=== PATIENT | female | born 1970 | race Caucasian/White ===

== ENCOUNTER 2018-07-07 10:10 | Emergency (ER) | payer OTHER ==
[~2018-07-07] VITALS: Ht 162.6 cm; Wt 80.7 kg
[~2018-07-07 10:10] MED LIST: ACCUNEB SO1.25 MG/1; CYMBALTA20 MG; IBUPROFEN 800800 M1 PO; PHENTERMINE HCL15 MG PO; PROZAC 20 MG20 MG
[2018-07-07] MEDS ORDERED: VENTOLIN HFA 1818 GM INH (11:05)
[2018-07-07] MEDS ORDERED: TRAMADOL 50 MG50 MG PO (11:05)
[2018-07-07] MEDS ORDERED: PREDNISONE 20 M20 M1 PO (11:05)
[2018-07-07] MEDS ORDERED: TESSALON PERLE100 MG PO (11:05)
[2018-07-07] MEDS ORDERED: DOXYCYCLINE 10100 MG PO (11:05)
[2018-07-07 11:20] VITALS: BP 137/94
== END 2018-07-07 11:21 | disposition home or self-care (01) ==
LOC: M.ERS 10:10
DX: J40 Bronchitis, not specified as acute or chronic (principal); F17.210 Nicotine dependence, cigarettes, uncomplicated; Z98.890 Other specified postprocedural states; Z87.01 Personal history of pneumonia (recurrent); Z88.6 Allergy status to analgesic agent; Z88.5 Allergy status to narcotic agent; Z88.1 Allergy status to other antibiotic agents

== ENCOUNTER 2019-02-07 07:48 | Emergency (ER) | payer OTHER ==
[~2019-02-07] VITALS: Ht 165.1 cm; Wt 82.1 kg
[~2019-02-07 07:48] MED LIST changes: +DOXYCYCLINE 10100 MG PO; +PREDNISONE 20 M20 M1 PO; +TESSALON PERLE100 MG PO; +TRAMADOL 50 MG50 MG PO; +VENTOLIN HFA 1818 GM INH
[2019-02-07] MEDS ORDERED: VENTOLIN HFA 1818 GM INH (09:12)
[2019-02-07] MEDS ORDERED: PREDNISONE 20 M20 M1 PO (09:12)
[2019-02-07] MEDS ORDERED: DOXYCYCLINE 10100 M1 PO (09:12)
[2019-02-07] MEDS ORDERED: TRAMADOL 50 MG50 MG PO (09:17)
[2019-02-07 09:28] VITALS: BP 187/78
== END 2019-02-07 09:29 | disposition home or self-care (01) ==
LOC: M.ERS 07:48
DX: J40 Bronchitis, not specified as acute or chronic (principal); F17.210 Nicotine dependence, cigarettes, uncomplicated; Z88.6 Allergy status to analgesic agent; Z88.1 Allergy status to other antibiotic agents; Z88.8 Allergy status to other drugs, medicaments and biological substances; Z98.890 Other specified postprocedural states; Z87.01 Personal history of pneumonia (recurrent)

== ENCOUNTER → 2019-06-29 | Outpatient (CLI) | payer OTHER ==
[~2019-06-29] MED LIST changes: +DOXYCYCLINE 10100 M1 PO
== END ==
LOC: M.RAD 06-22 09:30
DX: Z12.31 Encounter for screening mammogram for malignant neoplasm of breast (principal)

== ENCOUNTER 2020-09-26 07:53 | Emergency (ER) | payer OTHER ==
[~2020-09-26] VITALS: Ht 165.1 cm; Wt 88.9 kg
[2020-09-26 08:30] LABS: ABSOLUTE EOSINOPHILS 0.2 thou/uL (0.0-0.7); ABSOLUTE LYMPHOCYTES 2.6 thou/uL (0.8-5.3); ABSOLUTE MONOCYTES 0.7 thou/uL (0.0-1.2); ABSOLUTE NEUTROPHILS 7.6 thou/uL (1.6-8.1); BASOPHILS 0.4 %; HEMATOCRIT 33.9 % (37.0-47.0); HEMOGLOBIN 11.8 gm/dL (12.0-15.0); LYMPHOCYTES 23.5 %; MCH 41.9 pg (26.0-34.0); MCHC 34.8 g/dL (28.0-37.0); MCV 120.5 fL (80.0-100.0); MONOCYTES 6.1 %; MPV 7.9 fl. (7.2-11.1); NUCLEATED RBCS 0 /100WBC; PLATELET COUNT* 239 thou/uL (150-400); RBC 2.82 mil/uL (4.20-5.00); RDW-CV 19.8 % (10.5-14.5); WBC 11.2 thou/uL (4.0-11.0)
[2020-09-26 08:32] LABS: URINE BLOOD NEGATIVE (Negative); URINE CLARITY CLEAR; URINE COLOR DARK YELLOW; URINE GLUCOSE-RANDOM NEGATIVE (Negative); URINE KETONES TRACE (Negative); URINE LEUKOCYTES-REFLEX 1+ (Negative); URINE PROTEIN TRACE (Negative); URINE SPECIFIC GRAVITY 1.025 (1.005-1.030)
[2020-09-26 08:38] LABS: ICTOTEST (BILI CONFIRMATORY) Positive (Negative); URINE BILIRUBIN 2+ (Negative); URINE NITRITE-REFLEX POSITIVE (Negative)
[2020-09-26 08:40] LABS: SQUAMOUS 4-10 Moderate /LPF (0-3); URINE WBC-REFLEX 6-15 Few /HPF (0-5)
[2020-09-26 08:41] LABS: CASTS None Seen /LPF (None Seen); CRYSTALS None Seen /LPF (None Seen); MUCUS 4-6 Moderate strn/LPF (None Seen); URINE RBC 0-2 Rare /HPF (0-2)
[2020-09-26 08:42] LABS: CALCIUM 8.1 mg/dL (8.5-10.1); CREATININE 0.5 mg/dL (0.6-1.3); POTASSIUM 3.2 mmol/L (3.5-5.1)
[2020-09-26 08:51] LABS: ALBUMIN 3.2 g/dL (3.4-5.0); TOTAL PROTEIN 7.4 g/dL (6.4-8.2)
[2020-09-26] MEDS ORDERED: BENTYL 10 MG CA10 M1 PO (10:11)
[2020-09-26] MEDS ORDERED: AUGMENTIN 875-1 EACH PO (10:11)
[2020-09-26] MEDS ORDERED: ZOFRAN ODT4 MG DISSOLVE (10:11)
[2020-09-26 10:37] VITALS: BP 138/91
--- NOTE | 2020-09-26 14:15 | EKG ---
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1970 Requested By: Mega Espinoza Order Number: [id number] MD: Paulie Nascimento Measurements Intervals [place] Rate: 85 P: 65 DE: 176 QRS: 28 QRSD: 90 T: 57 QT: 406 QTc: 483 Interpretive Statements Sinus rhythm Low voltage, precordial leads No previous ECG available for comparison Electronically Signed On 09-26-2020 14:15:50 CDT by Paulie Nascimento [email or web address] <ELECTRONICALLY SIGNED> By: Paulie Nascimento MD, [facility] 09/26/20 1415 9 9 Paulie Nascimento MD, [facility] /EPI
== END 2020-09-26 10:38 | disposition home or self-care (01) ==
LOC: M.ERS 07:53
PROVIDERS: Emergency Medicine Emergency Medical Services
DX: N39.0 Urinary tract infection, site not specified (principal); R11.2 Nausea with vomiting, unspecified; F17.210 Nicotine dependence, cigarettes, uncomplicated; Z98.890 Other specified postprocedural states; Z88.6 Allergy status to analgesic agent; Z88.8 Allergy status to other drugs, medicaments and biological substances

== ENCOUNTER 2020-11-04 06:47 | Inpatient (IN) | payer OTHER ==
[~2020-11-04] VITALS: Ht 165.1 cm; Wt 93.1 kg
[~2020-11-04 06:47] MED LIST changes: +AUGMENTIN 875-1 EACH PO; +BENTYL 10 MG CA10 M1 PO; +ZOFRAN ODT4 MG DISSOLVE
[2020-11-04 07:00] VITALS: BP 140/84
[2020-11-04 07:50] LABS: ABSOLUTE LYMPHOCYTES 1.2 thou/uL (0.8-5.3); ABSOLUTE MONOCYTES 0.5 thou/uL (0.0-1.2); ABSOLUTE NEUTROPHILS 3.1 thou/uL (1.6-8.1); EOSINOPHILS 0.9 %; HEMATOCRIT 30.7 % (37.0-47.0); HEMOGLOBIN 11.3 gm/dL (12.0-15.0); LYMPHOCYTES 24.5 %; MCH 44.3 pg (26.0-34.0); MCHC 36.7 g/dL (28.0-37.0); MCV 120.6 fL (80.0-100.0); MONOCYTES 10.6 %; MPV 7.3 fl. (7.2-11.1); NUCLEATED RBCS 0 /100WBC; PLATELET COUNT* 127 thou/uL (150-400); RBC 2.55 mil/uL (4.20-5.00); RDW-CV 18.4 % (10.5-14.5)
[2020-11-04 08:22] LABS: CALCIUM 7.6 mg/dL (8.5-10.1); CREATININE 0.6 mg/dL (0.6-1.3)
[2020-11-04 08:27] LABS: ALBUMIN 2.7 g/dL (3.4-5.0); TOTAL BILIRUBIN 2.2 mg/dL (<0.1-1.0); TOTAL PROTEIN 7.1 g/dL (6.4-8.2)
[2020-11-04 09:12] LABS: PLATELET ESTIMATE ADEQUATE; TARGET CELLS 1+
[2020-11-04 10:30] LABS: URINE BILIRUBIN NEGATIVE (Negative); URINE BLOOD NEGATIVE (Negative); URINE CLARITY CLEAR; URINE COLOR YELLOW; URINE GLUCOSE-RANDOM NEGATIVE (Negative); URINE KETONES NEGATIVE (Negative); URINE LEUKOCYTES-REFLEX NEGATIVE (Negative); URINE NITRITE-REFLEX NEGATIVE (Negative); URINE PROTEIN NEGATIVE (Negative)
[2020-11-04 14:51] VITALS: BP 120/89
[2020-11-04 18:38] VITALS: BP 105/73
[2020-11-04 20:18] VITALS: BP 105/73
[2020-11-04] MEDS ORDERED: ASA81BEC PO (20:32)
[2020-11-04] MEDS ORDERED: IBUPROFEN 600600 M1 PO (20:37)
[2020-11-04 20:40] VITALS: BP 122/78
[2020-11-05 00:44] VITALS: BP 115/73
--- NOTE | 2020-11-05 01:23 | NUR ---
PT ADMIT TO COVID UNIT ROOM 115. ALERT ORIENTED X 4. UP TO BR WITH ONE PERSON ASSIST. PT IS UNSTEADY WHEN AMBULATORY. FALL PRECAUTIONS IN PLACE. PT GETTING SCHEDULED ATIVAN. PT DRINKS 5-6 SHOTS LIQUIOR PER DAY. PT SNORES WHEN ASLEEP. INITALLY ON RA. O2 2 LITERS NC ADDED WHEN PT DESAT IN THE UPPER 70S. PT STATED SHE NORMALLY WAKES UP Q 15-30 MIN WHEN SLEEPING. TELEMETRY SHOWS SR.
[2020-11-05 04:28] VITALS: BP 113/68
[2020-11-05 07:44] LABS: HEMATOCRIT 28.4 % (37.0-47.0); HEMOGLOBIN 10.2 gm/dL (12.0-15.0); MCH 43.6 pg (26.0-34.0); MCV 121.2 fL (80.0-100.0); MPV 7.8 fl. (7.2-11.1); RBC 2.34 mil/uL (4.20-5.00); RDW-CV 18.3 % (10.5-14.5); WBC 4.5 thou/uL (4.0-11.0)
[2020-11-05 07:52] LABS: CREATININE 0.6 mg/dL (0.6-1.3); POTASSIUM 3.1 mmol/L (3.5-5.1)
[2020-11-05 08:00] VITALS: BP 111/76
--- NOTE | 2020-11-05 09:58 | EKG ---
[place] [address] ELECTROCARDIOGRAM REPORT Name: SUNDAY ROSS Room: [address] ADM IN ..#: [id number] Admission: 11/04/20 Attend Phys: Eliot Lobato Discharge: Date of : 66 Date of Service: 11/04/20 0735 Report #: [id number] THIS REPORT FOR: //name// [facility] ED Test Date: 2020-11-04 Test Time: 07:35:10 Pat Name: SUNDAY ROSS Department: Room: [facility] Gender: F Recovery Coach: CANDIDO : 1970 Requested By: Kanu Cates Order Number: [id number] MD: Neri Foster Measurements Intervals [place] Rate: 87 P: 57 IN: 170 QRS: 27 QRSD: 117 T: 50 QT: 423 QTc: 509 Interpretive Statements Sinus rhythm Ventricular premature complex poor r wave progression Low voltage, extremity and precordial leads Compared to ECG 09/26/2020 08:10:17 Ventricular premature complex(es) now present Electronically Signed On 11-05-2020 9:58:01 CDT by Neri Foster [email or web address] <ELECTRONICALLY SIGNED> By: Neri Foster MD, FAC 11/05/20 0958 4 Neri Foster MD, FAC /EPI
[2020-11-05 12:58] LABS: INR 1.2; PROTIME 12.4 Seconds (9.20-11.50)
[2020-11-05 13:03] VITALS: BP 91/64
[2020-11-05 18:44] LABS: BE 0.8 mmol/L (-2 to +3); PCO2 36.2 mmHg (35.0-45.0); PO2 112.5 mmHg (75.0-100.0); pH 7.453 (7.340-7.450)
--- NOTE | 2020-11-05 19:03 | NUR ---
RECEIVED REPORT AROUND 0715. ASSUMED CARE. VS AND ASSESSMENT CHARTED. IV INTACT. NEW IV STARTED IN LEFT AC FOR CT. MEDS GIVEN PER JUN. HOURLY ROUNDING PERFORMED. ISOLATION INTACT. HEART MONITOR ATTACHED AT SR. CALL LIGHT WITH IN REACH.
[2020-11-05 20:00] VITALS: BP 119/75
[2020-11-06 00:17] VITALS: BP 110/70
--- NOTE | 2020-11-06 02:57 | NUR ---
PT DROWSEY ORIENTED X 4. DTR GIANFRANCO CALLED AND WANTED INFO RE MOTHER. PT REQUESTED NOT GIVE OUT INFO. DAUGHTERS PHONE NUMBER TAKEN DOWN ON A POST IT NOTE AND GIVEN TO PT. PT REMINDED TO CALL DTR 4 TIMES. PT REFUSED TO CALL DTR. O2 AT 2 LITERS NC. PT DESATURATES TO LOW 80S WHEN SHE TAKES O2 OFF AND FALLS ASLEEP. CURTAIN MENDER TRACING SR. HYDROCODONE GIVEN FOR BACK PAIN. CIWA 0. LORAZEPAM HELD FOR NOW. WELL CONTINUE TO MONITOR AND ASSESS.
[2020-11-06 04:25] VITALS: BP 95/62
[2020-11-06 05:44] LABS: ALBUMIN 2.3 g/dL (3.4-5.0); DIRECT BILIRUBIN 1.4 mg/dL (<0.1-0.3); TOTAL BILIRUBIN 1.8 mg/dL (<0.1-1.0); TOTAL PROTEIN 6.3 g/dL (6.4-8.2)
[2020-11-06 14:27] VITALS: BP 122/80
[2020-11-06 14:39] LABS: HEMATOCRIT 32.3 % (37.0-47.0); HEMOGLOBIN 11.4 gm/dL (12.0-15.0); MCH 42.2 pg (26.0-34.0); MCHC 35.2 g/dL (28.0-37.0); MCV 119.8 fL (80.0-100.0); MPV 8.5 fl. (7.2-11.1); RBC 2.7 mil/uL (4.20-5.00); RDW-CV 18.1 % (10.5-14.5); WBC 4.3 thou/uL (4.0-11.0)
[2020-11-06 14:44] LABS: CREATININE 0.7 mg/dL (0.6-1.3); POTASSIUM 3.3 mmol/L (3.5-5.1)
--- NOTE | 2020-11-06 15:17 | NUR ---
CM ASSESSMENT: PT IS COVID POSITIVE AND CURRENTLY UNDER ENHANCED PRECAUTIONS. PT A&O, INDEPENDENT WITH ADL'S, ACTIVE AND WORKS OUTSIDE THE HOME. PT RESIDES AT HOME ALONE. PT USES O DME, BUT INFORMS THAT SHE OWNS A HOME NEBULIZER AND DOESNT USE IT OFTEN. PT HAS 0 HX OF HH OR SNF. PT CURRENTLY ON 2L O2, AND DID NOT HAVE HOME OXYGEN PRIOR TO ADMIT. CM WILL REMAIN AVAILABLE TO ASSIST AND FOLLOW NEEDED.
[2020-11-06 15:26] LABS: MAGNESIUM 1.5 mg/dL (1.8-2.4); PHOSPHORUS* 3.3 mg/dL (2.5-4.9)
[2020-11-06 18:29] VITALS: BP 101/67
--- NOTE | 2020-11-06 19:14 | NUR ---
RECEIVED REPORT AROUND 0715. ASSUMED CARE. VS AND ASSESSMENT CHARTED. IV'S INTACT. HEART MONITOR ATTACHED AT SR/ST. MEDS GIVEN PER JUN. HOURLY ROUNDING PERFORMED. ISOLATION INTACT. NO PAIN THIS SHIFT. CALL LIGHT WITH IN REACH.
[2020-11-06 20:00] VITALS: BP 107/71
[2020-11-07] VITALS: BP 108/78
[2020-11-07 04:58] VITALS: BP 113/80
[2020-11-07 07:11] LABS: MAGNESIUM 1.6 mg/dL (1.8-2.4); POTASSIUM 3.8 mmol/L (3.5-5.1)
[2020-11-07 08:00] VITALS: BP 110/61
[2020-11-07 17:06] VITALS: BP 121/80
--- NOTE | 2020-11-07 18:46 | NUR ---
RECEIVED REPORT AROUND 0715. ASSUMED CARE. VS AND ASSESSMENT CHARTED. IV INTACT LEFT AC. PT PULLED OUT RIGHT HAND IV. HEART MONITOR ATTACHED AT SR. PT UP STAND BY ASSIST. MEDS GIVEN PER JUN. HOURLY ROUNDING PERFORMED. ISOLATION INTACT. 24 HOUR URINE BUCKET AT BEDSIDE. COLLECTION STARTED AT 1640 THIS SHIFT. NO PAIN THIS SHIFT. CALL LIGHT WITH IN REACH. WILL CONTINUE TO MONITOR.
[2020-11-07 18:50] VITALS: BP 125/80
[2020-11-07 20:00] VITALS: BP 116/64
[2020-11-08] VITALS: BP 121/60
--- NOTE | 2020-11-08 04:14 | NUR ---
ASSUMED PT CARE AT APPROX 1930. PT IS AWAKE AND ORIENTED X4. PT IS NOT IN DISTRESS, NO DESATURATIONS NOTED ON 2L OF O2/NC. PT IS NOT IN DISTRESS NO DESATURATIONS NOTED ON 2L OF O2/NC. NO ACUTE CHANGES THIS SHIFT. CALL LIGHT WITHIN REACH. HOURLY ROUNDING DONE FOR PT SAFETY.
[2020-11-08 05:35] VITALS: BP 116/74
[2020-11-08] MEDS ORDERED: AUGMENTIN 875-1 EACH PO (08:59)
[2020-11-08] MEDS ORDERED: VENTOLIN HFA 1818 GM INH (08:59)
[2020-11-08] MEDS ORDERED: PRENATAL PO (08:59)
[2020-11-08] MEDS ORDERED: DEXAMETHASONE6 MG PO (08:59)
[2020-11-08 11:45] VITALS: BP 109/67
[2020-11-08 11:48] VITALS: BP 138/94; BP 151/96
--- NOTE | 2020-11-08 14:44 | NUR ---
PHYSICIAN INFORMS OF PLAN FOR THE PT TO D/C HOME TODAY WITH SELF-CARE. R.T. COMPLETED REST AND EXERCISE AND INFORMS THAT THE PT DOES NOT NEED HOME O2. NO OTHER CM D/C PLANNIG NEEDS ANTICIPATED. CM WILL REMAIN AVAILABLE TO ASSIST AND FOLLOW NEEDED.
[2020-11-08 15:07] VITALS: BP 151/96
--- NOTE | 2020-11-08 17:52 | NUR ---
RECEIVED REPORT AROUND 0715. ASSUMED CARE. VS AND ASSESSMENT CHARTED. IV INTACT THIS AM. HEART MONITOR ATTACHED THIS AM. SR. REST AND EXERCISE DONE THIS SHIFT. NO O2 NEEDED. ISOLATION INTACT. MEDS GIVEN PER JUN. HOURLY ROUNDING PERFORMED. 24 HR URINE COLLECTED. DISCHARGE ORDERS RECEIVED. IV TAKEN OUT. HEART MONITOR OFF. PACKET GIVEN TO PT. COMMUNICATED UNDERSTANDING. PT LEFT UNIT VIA WHEEL CHAIR WITH ALL BELONGINGS AND NURSING STAFF AT 1740.
== END 2020-11-08 17:40 | disposition home or self-care (01) | DRG 177 ==
LOC: M.ERS 06:47 → M.ORTHSURG 10:48 → M.TBA-ER 10:48 → M.ORTHSURG 20:16
PROVIDERS: Family Medicine; Internal Medicine; Nurse Practitioner Adult Health; ADMIT Internal Medicine; ATTEND Internal Medicine
DX: U07.1 COVID-19 (principal); J12.82 Pneumonia due to coronavirus disease 2019; E87.1 Hypo-osmolality and hyponatremia; K92.0 Hematemesis; K70.31 Alcoholic cirrhosis of liver with ascites; K70.40 Alcoholic hepatic failure without coma; D64.9 Anemia, unspecified; K52.9 Noninfective gastroenteritis and colitis, unspecified; E87.6 Hypokalemia; R74.01 Elevation of levels of liver transaminase levels; E83.51 Hypocalcemia; E80.7 Disorder of bilirubin metabolism, unspecified; F10.20 Alcohol dependence, uncomplicated; R20.2 Paresthesia of skin; D69.6 Thrombocytopenia, unspecified; R06.03 Acute respiratory distress; R63.5 Abnormal weight gain; K59.00 Constipation, unspecified; Z88.6 Allergy status to analgesic agent; Z88.1 Allergy status to other antibiotic agents; Z88.8 Allergy status to other drugs, medicaments and biological substances; Z68.34 Body mass index [BMI] 34.0-34.9, adult

== ENCOUNTER 2020-11-25 23:06 | Inpatient (IN) | payer OTHER ==
[~2020-11-25] VITALS: Ht 165.1 cm; Wt 84.4 kg
[~2020-11-25 23:06] MED LIST changes: +ASA81BEC PO; +DEXAMETHASONE6 MG PO; +IBUPROFEN 600600 M1 PO; +PRENATAL PO
[2020-11-25 23:20] VITALS: BP 149/90
[2020-11-25 23:56] LABS: ABSOLUTE BASOPHILS 0.1 thou/uL (0.0-0.2); ABSOLUTE EOSINOPHILS 0.4 thou/uL (0.0-0.7); ABSOLUTE LYMPHOCYTES 3.7 thou/uL (0.8-5.3); ABSOLUTE NEUTROPHILS 8.4 thou/uL (1.6-8.1); BASOPHILS 0.4 %; EOSINOPHILS 2.8 %; HEMATOCRIT 30.4 % (37.0-47.0); HEMOGLOBIN 10.4 gm/dL (12.0-15.0); LYMPHOCYTES 27.1 %; MCH 39.1 pg (26.0-34.0); MCHC 34.2 g/dL (28.0-37.0); MCV 114.3 fL (80.0-100.0); MONOCYTES 7.2 %; MPV 8.6 fl. (7.2-11.1); NUCLEATED RBCS 0 /100WBC; PLATELET COUNT* 192 thou/uL (150-400); POLYS 62.5 %; RBC 2.66 mil/uL (4.20-5.00); RDW-CV 17.9 % (10.5-14.5); WBC 13.4 thou/uL (4.0-11.0)
[2020-11-26 00:07] LABS: URINE BLOOD NEGATIVE (Negative); URINE CLARITY CLEAR; URINE COLOR DARK YELLOW; URINE GLUCOSE-RANDOM NEGATIVE (Negative); URINE KETONES 1+ (Negative); URINE LEUKOCYTES-REFLEX NEGATIVE (Negative); URINE NITRITE-REFLEX NEGATIVE (Negative); URINE PROTEIN TRACE (Negative); URINE SPECIFIC GRAVITY 1.025 (1.005-1.030); URINE UROBILINOGEN >= 8.0 E.U./dl (0.2-1.0)
[2020-11-26 00:10] LABS: CALCIUM 8.3 mg/dL (8.5-10.1); CREATININE 0.5 mg/dL (0.6-1.3); POTASSIUM 3.1 mmol/L (3.5-5.1)
[2020-11-26 00:12] LABS: APTT 26.2 Seconds (25.0-31.3); INR 1.1; PROTIME 11.9 Seconds (9.20-11.50)
[2020-11-26 00:15] LABS: MAGNESIUM 1.7 mg/dL (1.8-2.4); TOTAL PROTEIN 6.9 g/dL (6.4-8.2)
[2020-11-26 00:15] LABS: URINE BILIRUBIN 2+ (Negative)
[2020-11-26 00:18] LABS: ICTOTEST (BILI CONFIRMATORY) Positive (Negative)
[2020-11-26 00:40] LABS: AMP/METHAMP Negative (Negative); BARBITURATES Negative (Negative); BENZODIAZEPINES Negative (Negative); COCAINE POSITIVE (Negative); METHADONE Negative (Negative); OPIATES Negative (Negative); PCP Negative (Negative); THC POSITIVE (Negative)
[2020-11-26 02:50] LABS: ACETAMINOPHEN < 2 ug/mL (10-30); SALICYLATE < 2.8 mg/dL (2.8-20.0)
--- NOTE | 2020-11-26 04:08 | NUR ---
PT REQUESTS THAT DAUGHTER, JOHN ROSS, BE GIVEN UPDATE ON CARE/RESULTS WHEN SHE CALLS.
[2020-11-26 04:19] LABS: ANISOCYTOSIS 1+; MACROCYTES 2+; PLATELET ESTIMATE ADEQUATE
[2020-11-26 07:26] VITALS: BP 102/59
[2020-11-26 09:35] LABS: ABSOLUTE BASOPHILS 0.1 thou/uL (0.0-0.2); ABSOLUTE EOSINOPHILS 0.3 thou/uL (0.0-0.7); ABSOLUTE LYMPHOCYTES 1.9 thou/uL (0.8-5.3); ABSOLUTE MONOCYTES 0.5 thou/uL (0.0-1.2); ABSOLUTE NEUTROPHILS 5.2 thou/uL (1.6-8.1); BASOPHILS 0.9 %; EOSINOPHILS 3.3 %; HEMATOCRIT 27.6 % (37.0-47.0); HEMOGLOBIN 9.3 gm/dL (12.0-15.0); LYMPHOCYTES 23.3 %; MCH 38.4 pg (26.0-34.0); MCHC 33.5 g/dL (28.0-37.0); MCV 114.6 fL (80.0-100.0); MONOCYTES 6.8 %; MPV 8.5 fl. (7.2-11.1); NUCLEATED RBCS 0 /100WBC; PLATELET COUNT* 152 thou/uL (150-400); POLYS 65.7 %; RBC 2.41 mil/uL (4.20-5.00); RDW-CV 17.6 % (10.5-14.5)
[2020-11-26 09:51] LABS: ANION GAP 10 mmol/L (7-16); BUN 6 mg/dL (7-18); CALCIUM 7.4 mg/dL (8.5-10.1); CHLORIDE 106 mmol/L (98-107); CHOLESTEROL 186 mg/dL (<200); CO2 25 mmol/L (21-32); CREATININE 0.5 mg/dL (0.6-1.3); GLUCOSE 85 mg/dL (70-99); HDL CHOLESTEROL 55 mg/dL (>40); LDL CHOLESTEROL 114 mg/dL (<100); POTASSIUM 3.5 mmol/L (3.5-5.1); SODIUM 141 mmol/L (136-145); TC:HDL 3.4 Ratio (Not establshd); TRIGLYCERIDE 89 mg/dL (<150); VLDL 18 mg/dL (<40)
[2020-11-26 09:57] LABS: SERUM ASSESSMENT Clear
[2020-11-26 10:05] LABS: APTT 26.4 Seconds (25.0-31.3); INR 1.2; PROTIME 12.3 Seconds (9.20-11.50)
--- NOTE | 2020-11-26 10:08 | EKG ---
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1970 Requested By: Claudia Tyler Order Number: [id number] MD: Neri Foster Measurements Intervals [place] Rate: 107 P: 74 ME: 162 QRS: 39 QRSD: 86 T: 64 QT: 352 QTc: 470 Interpretive Statements Sinus tachycardia Low voltage, precordial leads Compared to ECG 11/04/2020 07:35:10 Sinus rhythm no longer present Ventricular premature complex(es) no longer present Poor R-wave progression no longer present Electronically Signed On 11-26-2020 10:08:40 CDT by Neri Foster [email or web address] <ELECTRONICALLY SIGNED> By: Neri Foster MD, [facility] 11/26/20 1008 31 31 Neri Foster MD, [facility] /EPI
[2020-11-26 10:12] LABS: ANISOCYTOSIS 1+; MACROCYTES 1+; PLATELET ESTIMATE ADEQUATE
[2020-11-26 11:30] VITALS: BP 101/69
--- NOTE | 2020-11-26 12:55 | 2DMMODE ---
[place] [address] 2 D/M-MODE ECHOCARDIOGRAM Name: SUNDAY ROSS ANN Room: [place] [address] ADM IN [place].#: [id number] Admission: 11/26/20 Attend Phys: Jaziel Wills, Discharge: Date of : 66 Date of Service: 11/26/20 1255 Report #: [id number] THIS REPORT FOR: cc: PHIL HURLEY MD, BEVERLEY B. MD Blick,Neri Cunningham MD [facility] ~ APPROVED REPORT Study performed: 11/26/2020 10:45:41 EXAM: Comprehensive 2D, Doppler, and color-flow Echocardiogram Patient Location: In-Patient Room #: er Status: routine BSA: 1.92 HR: 92 bpm BP: 102/9 mmHg Rhythm: NSR Other Information Study Quality: Good Indications CVA/TIA Echo Enhancing Agent Indication: Rule out Shunt Agent(s) / Amount(s) Used: Agitated Saline 10 cc 2D Dimensions IVSd: 9.33 (7-11mm) LVOT Diam: 20.72 (18-24mm) LVDd: 50.52 mm PWd: 9.92 (7-11mm) Ascending Ao: 34.83 (22-36mm) LVDs: 31.44 (25-40mm) Aortic Root: 34.27 mm Volumes Left Atrial Volume (Systole) LA ESV Index: 30.80 mL/m2 Aortic Valve AoV Peak Spencer.: 1.63 m/s AO Peak Gr.: 10.57 mmHg LVOT Max P.36 mmHg AO Mean Gr.: 6.01 mmHg LVOT Mean P[place]99 [place] [address] 2 D/M-MODE ECHOCARDIOGRAM Name: SUNDAY ROSS ANN Room: [address] IN ..#: [id number] Admission: 11/26/20 Attend Phys: Jaziel Wills, Discharge: Date of : 66 Date of Service: 11/26/20 1255 Report #: [id number] LVOT Max V: 1.36 m/s AO V2 VTI: 29.04 cm LVOT Mean V: 0.77 m/s RAYMUNDO (VTI): 2.84 cm2 LVOT V1 VTI: 24.51 cm Mitral Valve E/A Ratio: 1.03 MV Decel. Time: 232.06 ms MV E Max Spencer.: 1.10 m/s MV PHT: 67.30 ms MVA (PHT): 3.27 cm2 TDI E/Lateral E': 8.46 E/Medial E': 6.88 Medial E' Spencer.: 0.16 m/s Lateral E' Spencer.: 0.13 m/s Pulmonary Valve PV Peak Spencer.: 1.17 m/s PV Peak Gr.: 5.51 mmHg Left Ventricle The left ventricle is normal size. There is normal LV segmental wall motion. There is normal left ventricular wall thickness. Left ventricular systolic function is normal. The left ventricular ejection fraction is within the normal range. LVEF is 55-60%. The left ventricular diastolic function is normal. Right Ventricle The right ventricle is normal size. The right ventricular systolic function is normal. Atria Left atrium is mildly dilated. The interatrial septum is intact with no evidence for an atrial septal defect. The right atrium size is normal. Aortic Valve The aortic valve is normal in structure. No aortic regurgitation is present. There is no aortic valvular stenosis. Mitral Valve The mitral valve is normal in structure. There is no mitral valve regurgitation noted. No evidence of mitral valve stenosis. Tricuspid Valve The tricuspid valve is normal in structure. Unable to assess PA pressure. [place] [address] 2 D/M-MODE ECHOCARDIOGRAM Name: SUNDAY ROSS ANN Room: [address] IN ..#: [id number] Admission: 11/26/20 Attend Phys: Jaziel Wills, Discharge: Date of : 66 Date of Service: 11/26/20 1255 Report #: [id number] Pulmonic Valve Pulmonic valve is not well visualized. There is no pulmonic valvular regurgitation. Great Vessels The aortic root is normal in size. IVC is normal in size and collapses >50% with inspiration. Pericardium There is no pericardial effusion. <Conclusion> LVEF is 55-60%. Left atrium is mildly dilated. The interatrial septum is intact with no evidence for an atrial septal defect. <ELECTRONICALLY SIGNED> By: Neri Foster MD, [facility] 11/26/20 1255 1255 1255 Neri Foster MD, FACC /INF
[2020-11-26 15:25] VITALS: BP 128/79
[2020-11-26 15:38] VITALS: BP 105/71
--- NOTE | 2020-11-26 18:24 | NUR ---
PT ARRIVED TO FLOOR FROM ER ABOUT 1640. IV PATENT. ON RA. UP STB. TOLERATING DIET. MILD ABD PAIN, IBUPROFEN ORDERED. A&Ox4. CALL LIGHT WITHIN REACH. WILL CONTINUE TO MONITOR.
[2020-11-26 20:04] VITALS: BP 114/76
[2020-11-26 23:44] VITALS: BP 121/79
[2020-11-27 02:06] LABS: GLYCOHEMOGLOBIN (HGB A1C) 5.2 % (4.8-5.6)
[2020-11-27 04:05] VITALS: BP 115/83
[2020-11-27 04:43] LABS: HEMATOCRIT 25.6 % (37.0-47.0); MCH 40.5 pg (26.0-34.0); MCHC 35.2 g/dL (28.0-37.0); MCV 115.1 fL (80.0-100.0); MPV 8.7 fl. (7.2-11.1); RBC 2.22 mil/uL (4.20-5.00); RDW-CV 18.3 % (10.5-14.5)
--- NOTE | 2020-11-27 08:45 | NUR ---
PT IS ABLE TO COMMUNICATE HER NEEDS TO STAFF EFFECTIVELY. CURRENT PAIN MEDICATION REGIMEN HAS BEEN ADEQUATE FOR CONTROLLING HER PAIN UP TO THIS TIME. NEUROLOGY CONSULTED.
--- NOTE | 2020-11-27 09:31 | NUR ---
Nutrition: Pt admitted with mentation change. Seen for nsg risk. Wt: 186#, near usual wt. H/o illicit drug use, ETOH abuse. Elevated LFTs, albumin 3. She is tolerating diet. No nutrition concerns at this time. Mild risk.
--- NOTE | 2020-11-27 10:24 | NUR ---
THIS INFORMATION SERVICES CONSULTANT IS IN AGREEMENT WITH NOTE BY NANDA LAM FOR THIS DAY. [place]
[2020-11-27 12:00] VITALS: BP 128/80
--- NOTE | 2020-11-27 13:46 | NUR ---
Pt is A&O. Resides at home alone. Independent and active. No DME. No hx of HH or SNF. Hx of ETOH. Neuro to see, r/o CVA. Therapies ordered. Anticipate dc later today or tomorrow.
[2020-11-27 16:00] VITALS: BP 107/64
[2020-11-27 21:46] VITALS: BP 116/73
[2020-11-27 22:00] VITALS: BP 116/73
[2020-11-28 00:57] VITALS: BP 120/60
[2020-11-28 04:35] VITALS: BP 120/60
[2020-11-28 07:38] LABS: CALCIUM 7.6 mg/dL (8.5-10.1); CREATININE 0.5 mg/dL (0.6-1.3); MAGNESIUM 1.6 mg/dL (1.8-2.4); PHOSPHORUS* 3.2 mg/dL (2.5-4.9); POTASSIUM 3.4 mmol/L (3.5-5.1)
[2020-11-28 08:00] VITALS: BP 129/79
[2020-11-28 12:00] VITALS: BP 123/83
--- NOTE | 2020-11-28 14:57 | NUR ---
Anticipate dc in a few days. Plan MRI and abd u/s
[2020-11-28 16:00] VITALS: BP 110/54
--- NOTE | 2020-11-28 19:31 | NUR ---
patient left against medical advice . patient educated about the action . IV D/C PRIOR before he left .doctor mcdonald
--- NOTE | 2020-11-30 11:35 | CON ---
[address] [address] CONSULTATION Name: SUNDAY ROSS ANN Room: [address] IN M.R.#: [id number] Admission: 11/26/20 Attend Phys: Jaziel Wills MD Discharge: 11/28/20 Date of : 66 Report #: [id number] THIS REPORT FOR: cc: PHIL HURLEY MD, BEVERLEY B. MD Khosla, Parveen K. MD ~ DATE OF CONSULTATION: 11/27/2020 HISTORY OF PRESENT ILLNESS: This is a 50-year-old female patient who was evaluated by me because she said she has speech difficulty for 2 days. On examination, it does not look like she has significant speech difficulty and she indicates she has become better, but apparently, she did have some speech difficulty when she came in and still has it. The patient's urine screen is positive for cocaine. She does not know how cocaine got into her system. REVIEW OF SYSTEMS: Indicate that she was COVID positive. She was admitted here. She has a pretty significant history of alcohol intake, although she said she has cut back. Her MCV is still pretty high. She does not have any significant focal deficit, but mainly expressive aphasia. [place] of testing is pending. A 14-point review of system was carried out and was otherwise noncontributory. PAST MEDICAL HISTORY: Negative for any stroke. FAMILY HISTORY: Positive for stroke, but not in early age. SOCIAL HISTORY: She smokes and drinks alcohol. PHYSICAL EXAMINATION: NEUROLOGIC: She is alert. She is responsive. She is reasonably fluent, but she says she has to push herself to get the words out and when she is anxious, it is difficult to bring the words out. Cranial nerve examination and neuromuscular examination was carried out and was unremarkable. Her reflexes are present. Tone is unremarkable. There is no meningeal sign. I could not look at the patient's fundus. VITAL SIGNS: Her blood pressure is 128/80, respirations 17, pulse of 90, temperature is 98.0. LABORATORY DATA: She is anemic and her platelet count is only 136. She is not on any stroke prophylaxis at the moment, but I need to talk to the hospitalist that it is possible she is not on that because her hemoglobin is low and they are suspecting some GI problem causing blood loss. The patient's CT scan was unremarkable. Her carotid Doppler showed only mild disease. Her MCV is pretty significantly high. GFR is 130. She already had a CT [place] [address] CONSULTATION Name: SUNDAY ROSS ANN Room: [address]#: [id number] Admission: 11/26/20 Attend Phys: Jaziel Wills MD Discharge: 11/28/20 Date of : 66 Report #: [id number] IMPRESSION: There is a possibility this patient may have had a stroke. She has multiple vascular risk factors, which is summarized above. I discussed with her that I would like to get an MRI and MRA as the first step. She was advised not to use any drugs and stop drinking alcohol and smoking. We will follow up after above testing is available. The patient was extensively counseled on all these issues and I reviewed her extensive records, imaging studies and lab workup and in altogether about 50 minutes of time was spent taking care of this patient today and majority was spent counseling, coordinating, reviewing all this described above. <ELECTRONICALLY SIGNED> By: Ryan Vazquez MD 11/30/20 1135 1136 1610Ryan Vazquez MD /nt
== END 2020-11-28 19:25 | disposition left against medical advice (07) | DRG 872 ==
LOC: M.ERS 23:06 → M.TBA-ER 11-26 03:58 → M.2W 11-26 16:57
PROVIDERS: Internal Medicine; Personal Emergency Response Attendant; ADMIT Internal Medicine; ATTEND Internal Medicine
DX: A41.9 Sepsis, unspecified organism (principal); E87.6 Hypokalemia; F14.90 Cocaine use, unspecified, uncomplicated; F12.90 Cannabis use, unspecified, uncomplicated; Y90.7 Blood alcohol level of 200-239 mg/100 ml; K70.40 Alcoholic hepatic failure without coma; F10.10 Alcohol abuse, uncomplicated; F17.200 Nicotine dependence, unspecified, uncomplicated; Z53.21 Procedure and treatment not carried out due to patient leaving prior to being seen by health care provider; Z20.822 Contact with and (suspected) exposure to COVID-19; Z98.891 History of uterine scar from previous surgery; Z86.16 Personal history of COVID-19; Z85.820 Personal history of malignant melanoma of skin; Z79.82 Long term (current) use of aspirin; Z79.899 Other long term (current) drug therapy; Z88.1 Allergy status to other antibiotic agents; Z88.5 Allergy status to narcotic agent; Z88.8 Allergy status to other drugs, medicaments and biological substances

== ENCOUNTER 2021-03-18 15:37 | Inpatient (IN) | payer OTHER ==
[~2021-03-18] VITALS: Ht 165.1 cm; Wt 76.2 kg
[2021-03-18 15:49] VITALS: BP 160/140
[2021-03-18] MEDS ORDERED: VITAMIN B1 (15:52)
[2021-03-18] MEDS ORDERED: VITAMIN B122500 MCG PO (15:52)
[2021-03-18] MEDS ORDERED: CHILDREN'S ASPI81 M1 PO (15:52)
[2021-03-18] MEDS ORDERED: SPIRONOLACTONE50 MG PO (15:53)
[2021-03-18] MEDS ORDERED: FUROSEMIDE 20 M20 MG PO (15:53)
[2021-03-18] MEDS ORDERED: FOLIC ACID1 MG PO (15:54)
[2021-03-18 16:09] LABS: ABSOLUTE LYMPHOCYTES 0.8 thou/uL (0.8-5.3); ABSOLUTE MONOCYTES 0.6 thou/uL (0.0-1.2); ABSOLUTE NEUTROPHILS 7.6 thou/uL (1.6-8.1); BASOPHILS 0.5 %; EOSINOPHILS 0.2 %; HEMATOCRIT 39.2 % (37.0-47.0); HEMOGLOBIN 13.3 gm/dL (12.0-15.0); LYMPHOCYTES 8.3 %; MCH 33.3 pg (26.0-34.0); MCV 98.1 fL (80.0-100.0); MONOCYTES 7.1 %; NUCLEATED RBCS 0 /100WBC; PLATELET COUNT* 196 thou/uL (150-400); POLYS 83.9 %; RDW-CV 15.6 % (10.5-14.5); WBC 9.1 thou/uL (4.0-11.0)
[2021-03-18 16:22] LABS: CALCIUM 10.3 mg/dL (8.5-10.1); CREATININE 0.8 mg/dL (0.6-1.3)
[2021-03-18 16:26] LABS: ALBUMIN 3.9 g/dL (3.4-5.0); TOTAL BILIRUBIN 2.5 mg/dL (<0.1-1.0); TOTAL PROTEIN 8.9 g/dL (6.4-8.2)
[2021-03-18 17:34] LABS: URINE BLOOD NEGATIVE (Negative); URINE CLARITY CLEAR; URINE COLOR DARK YELLOW; URINE GLUCOSE-RANDOM NEGATIVE (Negative); URINE KETONES TRACE (Negative); URINE LEUKOCYTES NEGATIVE (Negative); URINE NITRITE NEGATIVE (Negative); URINE PROTEIN TRACE (Negative); URINE SPECIFIC GRAVITY >= 1.030 (1.005-1.030)
[2021-03-18 17:36] LABS: ICTOTEST (BILI CONFIRMATORY) Negative (Negative); URINE BILIRUBIN 2+ (Negative)
[2021-03-18 23:12] VITALS: BP 118/71
[2021-03-18 23:15] VITALS: BP 128/70
[2021-03-19] MEDS ORDERED: KLOR-CON M2020 MEQ PO (00:41)
[2021-03-19] MEDS ORDERED: KRISTALOSE20 GM PO (00:42)
[2021-03-19 05:48] LABS: ABSOLUTE BASOPHILS 0.1 thou/uL (0.0-0.2); ABSOLUTE EOSINOPHILS 0.2 thou/uL (0.0-0.7); ABSOLUTE LYMPHOCYTES 2.5 thou/uL (0.8-5.3); ABSOLUTE MONOCYTES 0.5 thou/uL (0.0-1.2); ABSOLUTE NEUTROPHILS 4.4 thou/uL (1.6-8.1); BASOPHILS 0.7 %; EOSINOPHILS 2.3 %; HEMATOCRIT 34.4 % (37.0-47.0); HEMOGLOBIN 11.6 gm/dL (12.0-15.0); LYMPHOCYTES 32.6 %; MCH 33.2 pg (26.0-34.0); MCHC 33.9 g/dL (28.0-37.0); MONOCYTES 6.9 %; MPV 8.2 fl. (7.2-11.1); NUCLEATED RBCS 0 /100WBC; PLATELET COUNT* 168 thou/uL (150-400); POLYS 57.5 %; RBC 3.51 mil/uL (4.20-5.00); RDW-CV 14.9 % (10.5-14.5); WBC 7.7 thou/uL (4.0-11.0)
[2021-03-19 05:52] LABS: CALCIUM 9.3 mg/dL (8.5-10.1); CREATININE 0.7 mg/dL (0.6-1.3); POTASSIUM 3.7 mmol/L (3.5-5.1)
[2021-03-19 08:09] VITALS: BP 95/56
--- NOTE | 2021-03-19 09:52 | EKG ---
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 /EPI
[2021-03-19 20:35] VITALS: BP 109/65
[2021-03-20 04:25] LABS: HEMOGLOBIN 11.5 gm/dL (12.0-15.0); MCH 33.4 pg (26.0-34.0); MCHC 33.8 g/dL (28.0-37.0); MCV 98.8 fL (80.0-100.0); MPV 8.2 fl. (7.2-11.1); RBC 3.44 mil/uL (4.20-5.00); WBC 5.8 thou/uL (4.0-11.0)
[2021-03-20 04:58] LABS: ALBUMIN 3.1 g/dL (3.4-5.0); CALCIUM 8.8 mg/dL (8.5-10.1); CREATININE 0.8 mg/dL (0.6-1.3); MAGNESIUM 1.6 mg/dL (1.8-2.4); POTASSIUM 3.6 mmol/L (3.5-5.1); TOTAL BILIRUBIN 2.8 mg/dL (<0.1-1.0); TOTAL PROTEIN 7.1 g/dL (6.4-8.2)
[2021-03-20 10:34] VITALS: BP 106/73
[2021-03-20 16:00] VITALS: BP 97/60
[2021-03-20 22:05] VITALS: BP 111/64
[2021-03-21 04:15] LABS: ABSOLUTE BASOPHILS 0.1 thou/uL (0.0-0.2); ABSOLUTE EOSINOPHILS 0.1 thou/uL (0.0-0.7); ABSOLUTE LYMPHOCYTES 2.3 thou/uL (0.8-5.3); ABSOLUTE MONOCYTES 0.6 thou/uL (0.0-1.2); ABSOLUTE NEUTROPHILS 2.9 thou/uL (1.6-8.1); BASOPHILS 1.1 %; EOSINOPHILS 2.4 %; HEMATOCRIT 30.7 % (37.0-47.0); HEMOGLOBIN 10.5 gm/dL (12.0-15.0); LYMPHOCYTES 38.6 %; MCH 33.7 pg (26.0-34.0); MCHC 34.2 g/dL (28.0-37.0); MCV 98.5 fL (80.0-100.0); MONOCYTES 10.5 %; MPV 8.3 fl. (7.2-11.1); NUCLEATED RBCS 0 /100WBC; PLATELET COUNT* 139 thou/uL (150-400); POLYS 47.4 %; RBC 3.12 mil/uL (4.20-5.00); RDW-CV 15.4 % (10.5-14.5); WBC 6.1 thou/uL (4.0-11.0)
[2021-03-21 05:07] LABS: CALCIUM 8.2 mg/dL (8.5-10.1); CREATININE 0.7 mg/dL (0.6-1.3); MAGNESIUM 1.5 mg/dL (1.8-2.4); PHOSPHORUS* 3.9 mg/dL (2.5-4.9)
[2021-03-21 08:20] VITALS: BP 111/59
[2021-03-21 16:05] VITALS: BP 98/60
[2021-03-21 19:48] VITALS: BP 105/56
[2021-03-22 08:00] VITALS: BP 102/57
[2021-03-22 08:40] LABS: HEMATOCRIT 33.3 % (37.0-47.0); HEMOGLOBIN 11.3 gm/dL (12.0-15.0); MCH 33.5 pg (26.0-34.0); MCHC 33.8 g/dL (28.0-37.0); MCV 99.1 fL (80.0-100.0); MPV 8.5 fl. (7.2-11.1); RBC 3.36 mil/uL (4.20-5.00); RDW-CV 14.9 % (10.5-14.5); WBC 5.8 thou/uL (4.0-11.0)
[2021-03-22 09:02] LABS: ALBUMIN 2.9 g/dL (3.4-5.0); CALCIUM 8.5 mg/dL (8.5-10.1); CREATININE 0.8 mg/dL (0.6-1.3); MAGNESIUM 1.9 mg/dL (1.8-2.4); POTASSIUM 3.8 mmol/L (3.5-5.1); TOTAL BILIRUBIN 2.2 mg/dL (<0.1-1.0); TOTAL PROTEIN 6.7 g/dL (6.4-8.2)
[2021-03-22] MEDS ORDERED: MI-ACID80 MG PO (09:51)
[2021-03-22] MEDS ORDERED: MIRALAX17 GM PO (09:58)
[2021-03-22 14:13] VITALS: BP 102/57
== END 2021-03-22 15:00 | disposition home or self-care (01) | DRG 389 ==
LOC: M.ERS 15:37 → M.TBA-ER 19:50 → M.3W 19:50
PROVIDERS: Internal Medicine; Physician Assistant; Surgery; ADMIT Internal Medicine; ATTEND Internal Medicine
PROC: 0DH67UZ Insertion of Feeding Device into Stomach, Via Natural or Artificial Opening (ICD-10-PCS; principal; 2021-03-21)
DX: K91.30 Postprocedural intestinal obstruction, unspecified as to partial versus complete (principal); E44.1 Mild protein-calorie malnutrition; K74.60 Unspecified cirrhosis of liver; Z20.822 Contact with and (suspected) exposure to COVID-19; Z60.2 Problems related to living alone; Z88.6 Allergy status to analgesic agent; Z88.1 Allergy status to other antibiotic agents; Z88.8 Allergy status to other drugs, medicaments and biological substances; Z68.28 Body mass index [BMI] 28.0-28.9, adult; Z79.82 Long term (current) use of aspirin; Z79.899 Other long term (current) drug therapy

== ENCOUNTER 2021-03-23 16:11 | Inpatient (IN) | payer OTHER ==
[~2021-03-23] VITALS: Ht 165.1 cm; Wt 75.3 kg
[~2021-03-23 16:11] MED LIST changes: +CHILDREN'S ASPI81 M1 PO; +FOLIC ACID1 MG PO; +FUROSEMIDE 20 M20 MG PO; +KLOR-CON M2020 MEQ PO; +KRISTALOSE20 GM PO; +MI-ACID80 MG PO; +MIRALAX17 GM PO; +SPIRONOLACTONE50 MG PO; +VITAMIN B1; +VITAMIN B122500 MCG PO
[2021-03-23 16:25] VITALS: BP 137/90
[2021-03-23 17:11] LABS: ABSOLUTE BASOPHILS 0.1 thou/uL (0.0-0.2); ABSOLUTE EOSINOPHILS 0.1 thou/uL (0.0-0.7); ABSOLUTE LYMPHOCYTES 1.4 thou/uL (0.8-5.3); ABSOLUTE MONOCYTES 0.8 thou/uL (0.0-1.2); ABSOLUTE NEUTROPHILS 7.4 thou/uL (1.6-8.1); BASOPHILS 0.8 %; EOSINOPHILS 0.7 %; HEMATOCRIT 39.7 % (37.0-47.0); LYMPHOCYTES 14.1 %; MCH 33.5 pg (26.0-34.0); MCV 98.5 fL (80.0-100.0); MONOCYTES 8.6 %; MPV 8.3 fl. (7.2-11.1); NUCLEATED RBCS 0 /100WBC; PLATELET COUNT* 223 thou/uL (150-400); POLYS 75.8 %; RBC 4.03 mil/uL (4.20-5.00); RDW-CV 15.3 % (10.5-14.5); WBC 9.7 thou/uL (4.0-11.0)
[2021-03-23 17:16] LABS: HEMOGLOBIN 13.5 gm/dL (12.0-15.0)
[2021-03-23 17:17] LABS: CALCIUM 9.6 mg/dL (8.5-10.1); CREATININE 0.8 mg/dL (0.6-1.3); POTASSIUM 4.1 mmol/L (3.5-5.1)
[2021-03-23 17:21] LABS: ALBUMIN 3.8 g/dL (3.4-5.0); TOTAL BILIRUBIN 2.3 mg/dL (<0.1-1.0); TOTAL PROTEIN 8.5 g/dL (6.4-8.2)
[2021-03-23 22:30] VITALS: BP 99/68
[2021-03-24 00:57] LABS: URINE BILIRUBIN NEGATIVE (Negative); URINE BLOOD NEGATIVE (Negative); URINE CLARITY CLEAR; URINE COLOR YELLOW; URINE GLUCOSE-RANDOM NEGATIVE (Negative); URINE KETONES NEGATIVE (Negative); URINE LEUKOCYTES-REFLEX NEGATIVE (Negative); URINE NITRITE-REFLEX NEGATIVE (Negative); URINE PROTEIN NEGATIVE (Negative); URINE SPECIFIC GRAVITY <= 1.005 (1.005-1.030)
[2021-03-24 02:19] VITALS: BP 112/68
[2021-03-24 07:30] VITALS: BP 93/63
[2021-03-24 11:30] VITALS: BP 97/66
[2021-03-24 13:38] LABS: AMP/METHAMP Negative (Negative); BARBITURATES Negative (Negative); BENZODIAZEPINES Negative (Negative); COCAINE Negative (Negative); METHADONE Negative (Negative); OPIATES Negative (Negative); PCP Negative (Negative); THC POSITIVE (Negative)
--- NOTE | 2021-03-24 13:56 | EKG ---
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 : 1970 Requested By: Knau Cates Order Number: [id number] MD: Tato Vail Measurements Intervals [place] Rate: 87 P: 55 AR: 174 QRS: 28 QRSD: 82 T: 56 QT: 372 QTc: 448 Interpretive Statements Sinus rhythm Consider left atrial enlargement Low voltage, precordial leads Compared to ECG 03/18/2021 16:09:28 Low QRS voltage now present Electronically Signed On 03-24-2021 13:56:36 FREELANCE GRAPHIC DESIGNER by Tato Vail [email or web address] <ELECTRONICALLY SIGNED> By: Tato Vail MD, FACC 03/24/21 1356 170 170 Tato Vail MD, FAC /EPI
[2021-03-24 15:30] VITALS: BP 87/53
[2021-03-24 16:37] VITALS: BP 112/78
[2021-03-24 19:37] VITALS: BP 103/63
[2021-03-25 05:34] LABS: HEMATOCRIT 32.6 % (37.0-47.0); MCH 33.1 pg (26.0-34.0); MCHC 33.4 g/dL (28.0-37.0); MCV 98.9 fL (80.0-100.0); MPV 7.8 fl. (7.2-11.1); RBC 3.29 mil/uL (4.20-5.00); WBC 5.9 thou/uL (4.0-11.0)
[2021-03-25 05:59] LABS: HEMOGLOBIN 10.9 gm/dL (12.0-15.0)
[2021-03-25 06:08] LABS: ALBUMIN 2.8 g/dL (3.4-5.0); CREATININE 0.7 mg/dL (0.6-1.3); MAGNESIUM 1.7 mg/dL (1.8-2.4); POTASSIUM 3.6 mmol/L (3.5-5.1); TOTAL BILIRUBIN 2.2 mg/dL (<0.1-1.0); TOTAL PROTEIN 6.4 g/dL (6.4-8.2)
[2021-03-25 09:00] VITALS: BP 106/69
[2021-03-25 09:08] LABS: INR 1.3; PROTIME 13.3 Seconds (9.20-11.50)
[2021-03-25 15:00] VITALS: BP 115/84
--- NOTE | 2021-03-25 16:09 | OP ---
[address] [address] OPERATIVE REPORT Name: SUNDAY ROSS ANN Room: [address] IN M.R.#: [id number] Admission: 03/23/21 Attend Phys: Ricarda Garcia Discharge: Date of : 66 Report #: [id number] THIS REPORT FOR: cc: PHIL HURLEY MD, BEVERLEY B. MD Gazzetta, Joshua D. DO ~ DATE OF SURGERY: 03/25/2021 PREOPERATIVE DIAGNOSIS: Small-bowel obstruction. POSTOPERATIVE DIAGNOSIS: Small-bowel obstruction. PROCEDURE PERFORMED: Exploratory laparotomy with small bowel resection and primary reanastomosis. SURGEON: Diogenes Lott DO CO-SURGEON: Wilmer Corcoran DO, PGY-5 DIRECTOR OF INSTITUTIONAL GIVING: TOREY Garrett. ANESTHESIA: General. ESTIMATED BLOOD LOSS: 20 mL. SPECIMENS: Small bowel. FINDINGS: Loop of small bowel adhesed to the anterior abdominal wall at the level of previous ventral hernia repair. The small bowel had multiple serosal tears that were resected. A NAANDA drain was placed in the subcutaneous space. INDICATIONS: The patient is a 51-year-old female with history of recent small-bowel obstruction. She recently had an emergent ventral hernia repair at [facility] in January. CT scan on this most recent admission showed multiple dilated loops of bowel that did not improve after NG decompression. We elected to proceed to the operating room for emergent exploration of her abdomen. Risks, benefits and alternatives discussed at length and she agreed to proceed with surgery. DESCRIPTION OF PROCEDURE: After consent was obtained, the patient was taken to the operating room and placed in the supine position. SCDs applied to bilateral lower extremities. Safety belt placed across the patient's waist. Two grams of Ancef were given for surgical prophylaxis. The patient underwent general endotracheal anesthesia without any complications. The patient's abdomen was prepped and draped in the standard sterile fashion[place] [address] OPERATIVE REPORT Name: SUNDAY ROSS Room: [address] IN ..#: [id number] Admission: 03/23/21 Attend Phys: Ricarda Garcia Discharge: Date of : 66 Report #: [id number] confirm patient and procedure. A 10 blade scalpel was used to make an incision just above her previous incision above her umbilicus. Electrocautery was used for hemostasis and dissected down to the level of fascia. Once the fascia was encountered, it was scored. A finger was used to guide the further extension of the fascial incision. Peritoneum was encountered, it was grasped between 2 hemostats and entered using Metzenbaum scissors. We then extended our incision down to the level of what appeared to be bowel up against the anterior abdominal wall. This bowel was adhesed significantly to the anterior abdominal wall and we did not feel like it would be salvageable. There was a small area of darkening on the bowel wall. We dissected the bowel off the abdominal wall using Metzenbaum scissors. The bowel was then eviscerated. There was about a 4-inch segment of small intestine that did have multiple serosal tears from removing it from the anterior abdominal wall, it was clearly a point of obstruction. Two staple loads of the 55 MAGALI stapling device was used to resect this portion of small bowel. LigaSure device was used to ligate the mesentery of the small bowel specimen. The bowel was sent for specimen. Enterotomies were made on either end of the proximal and distal bowel on the antimesenteric side. A 55 MAGALI stapling device was used to make a common enterotomy. Common enterotomy was closed with a 60 TA stapling device. A crotch stitch was placed with a 2-0 silk. The common channel was palpated and patent. There was nothing in between our two segments of bowel. 3-0 silk inturrupted imbricating sutures were used to imbricate the staple line. We then reduced the bowel back into the abdomen, irrigated the abdomen with a liter of normal saline. Small bowel was run from the ligament of Treitz down to the TI. There was no evidence of any other pathology that would account for her symptoms. At this point, we placed Seprafilm into the abdomen and two #1 looped PDS sutures were used to reapproximate the fascia in the midline. 4 0 vicryl sutures were placed in an inturrupted fashion as well. Subcutaneous tissue reapproximated with 3-0 Vicryl, skin reapproximated with sunny. A 15-[place] ANANDA drain was placed in the subcutaneous tissue due to her history of cirrhosis and ascites in the abdomen. The patient was then transferred to PACU in stable condition. All needle, instrument and sponge counts were correct x2 at the end of the case. <ELECTRONICALLY SIGNED> By: Diogenes Lott DO 03/25/21 1609 1220 1258Diogenes Lott DO /nt
[2021-03-25 20:30] VITALS: BP 125/91
[2021-03-26 00:29] VITALS: BP 128/75
[2021-03-26 04:00] VITALS: BP 111/81
[2021-03-26 05:21] LABS: HEMATOCRIT 28.4 % (37.0-47.0); HEMOGLOBIN 9.5 gm/dL (12.0-15.0); MCH 33.5 pg (26.0-34.0); MCHC 33.6 g/dL (28.0-37.0); MCV 99.5 fL (80.0-100.0); MPV 8.1 fl. (7.2-11.1); RBC 2.85 mil/uL (4.20-5.00); RDW-CV 14.7 % (10.5-14.5); WBC 10.5 thou/uL (4.0-11.0)
[2021-03-26 05:39] LABS: ALBUMIN 2.8 g/dL (3.4-5.0); CALCIUM 8.1 mg/dL (8.5-10.1); CREATININE 0.8 mg/dL (0.6-1.3); MAGNESIUM 1.9 mg/dL (1.8-2.4); POTASSIUM 4.4 mmol/L (3.5-5.1); TOTAL BILIRUBIN 2.5 mg/dL (<0.1-1.0); TOTAL PROTEIN 6.3 g/dL (6.4-8.2)
[2021-03-26 08:20] VITALS: BP 111/72
[2021-03-26 12:30] VITALS: BP 99/67
[2021-03-26 15:53] VITALS: BP 101/69
[2021-03-26 19:50] VITALS: BP 117/77
[2021-03-27 05:15] LABS: HEMATOCRIT 23.2 % (37.0-47.0); HEMOGLOBIN 8.2 gm/dL (12.0-15.0); MCH 35.3 pg (26.0-34.0); MCHC 35.6 g/dL (28.0-37.0); MCV 99.3 fL (80.0-100.0); MPV 8.4 fl. (7.2-11.1); RBC 2.33 mil/uL (4.20-5.00); RDW-CV 14.8 % (10.5-14.5); WBC 9.9 thou/uL (4.0-11.0)
[2021-03-27 05:37] LABS: ALBUMIN 2.5 g/dL (3.4-5.0); CALCIUM 7.8 mg/dL (8.5-10.1); CREATININE 0.9 mg/dL (0.6-1.3); MAGNESIUM 1.8 mg/dL (1.8-2.4); TOTAL BILIRUBIN 2.9 mg/dL (<0.1-1.0)
[2021-03-27 08:00] VITALS: BP 94/66
[2021-03-27 15:58] VITALS: BP 99/66
[2021-03-27 21:43] VITALS: BP 101/65
[2021-03-28 04:09] LABS: HEMATOCRIT 20.7 % (37.0-47.0); HEMOGLOBIN 7.1 gm/dL (12.0-15.0); MCH 33.6 pg (26.0-34.0); MCHC 34.1 g/dL (28.0-37.0); MCV 98.6 fL (80.0-100.0); RBC 2.1 mil/uL (4.20-5.00); RDW-CV 14.8 % (10.5-14.5); WBC 7.5 thou/uL (4.0-11.0)
[2021-03-28 04:42] LABS: ALBUMIN 2.4 g/dL (3.4-5.0); CALCIUM 7.7 mg/dL (8.5-10.1); CREATININE 0.8 mg/dL (0.6-1.3); MAGNESIUM 1.7 mg/dL (1.8-2.4); POTASSIUM 3.9 mmol/L (3.5-5.1); TOTAL BILIRUBIN 2.6 mg/dL (<0.1-1.0); TOTAL PROTEIN 5.6 g/dL (6.4-8.2)
[2021-03-28 08:00] VITALS: BP 188/91
--- NOTE | 2021-03-28 11:08 | PATH ---
[place] [address] PATHOLOGY RPT PROCEDURE Name: SUNDAY ROSS Room: [address] IN M.R.#: [id number] Admission: 03/23/21 Date of : 66 Discharge: Report #: [id number] Path Case #: [id number] [facility] Accession Number: [id number] . 01 Material submitted: . small bowel - SMALL BOWEL . 01 Clinical history: . EXPLORATORY LAPAROTOMY LYSIS OF ADHESIONS SMALL BOWEL OBSTRUCTION . 02 Diagnosis: Small bowel: - Segment of benign small intestine with focal active mucosal inflammation and ulceration in region of chronic serositis and serosal fibrosis/adhesion to contiguous, but distant, small intestine, negative for granulomas and dysplasia. See comment. . (MYRON:delmy; 03/27/2021) QLM 03/27/2021 1720 Local . 02 Comment: Small intestinal active inflammation and ulceration is present in one portion of the small intestine overlying the mnrkvmz-ro-isnetod adhesion and is of uncertain etiology, although use of non-steroidal anti-inflammatory agents and, less likely, Crohn's disease should be considered in the differential. . (MYRON:mmirvin; 03/27/2021) . 02 Electronically signed: . Sudhakar Diaz MD, Pathologist NPI- [id number] . 01 Gross description: . Fixative: Formalin Labeled: Small bowel Specimen received: Unoriented segment of small bowel Dimensions: 27.8 cm in length by 1.7-3.9 cm in diameter Margins: Stapled Serosa: [place]-kemp to pink-velásquez Mesenteric fat: Up to 2.6 cm Mucosa: Light kepm with normal architectural folds Abnormalities: The specimen is adhesed onto itself . Tag And Label Cutter sections submitted as follows: A1-A2 [place] [address] PATHOLOGY RPT PROCEDURE Name: YAHAIRA ROSSI ANN Room: [address] IN [facility]#: [id number] Admission: 03/23/21 Date of : 66 Discharge: Report #: [id number] Path Case #: [id number] A3-A4 representative phlebotomy services sections through area of adhesion A5-A6 representative phlebotomy services cross-sections. (CAA; 03/26/2021) QAC/QAC 03/26/2021 1153 Local . 02 Pathologist provided ICD-10: K63.3, K52.9, K65.8 . 02 [facility] . [id number] Specimen Comment: A courtesy copy of this report has been sent to [phone] Specimen Comment: [phone], Specimen Comment: Report sent to , DR COSTA / DR HURLEY Specimen Comment: A duplicate report has been generated due to demographic updates. Performed at: [address], [place] [id number] MD Srini Carney MD Phone: [phone] Performed at: [facility] [address], [place], [place] [id number] MD Sudhakar Diaz MD Phone: [phone]
[2021-03-28 12:53] LABS: ABSOLUTE EOSINOPHILS 0.1 thou/uL (0.0-0.7); ABSOLUTE LYMPHOCYTES 1.4 thou/uL (0.8-5.3); ABSOLUTE MONOCYTES 0.8 thou/uL (0.0-1.2); ABSOLUTE NEUTROPHILS 5.5 thou/uL (1.6-8.1); BASOPHILS 0.3 %; EOSINOPHILS 1.1 %; HEMATOCRIT 22.4 % (37.0-47.0); HEMOGLOBIN 7.7 gm/dL (12.0-15.0); LYMPHOCYTES 18.1 %; MCH 33.8 pg (26.0-34.0); MCHC 34.5 g/dL (28.0-37.0); MCV 97.9 fL (80.0-100.0); MONOCYTES 9.8 %; MPV 8.1 fl. (7.2-11.1); NUCLEATED RBCS 0 /100WBC; PLATELET COUNT* 201 thou/uL (150-400); POLYS 70.7 %; RBC 2.29 mil/uL (4.20-5.00); RDW-CV 14.8 % (10.5-14.5); WBC 7.8 thou/uL (4.0-11.0)
[2021-03-28 13:15] LABS: ALBUMIN 2.6 g/dL (3.4-5.0); CALCIUM 8.1 mg/dL (8.5-10.1); CREATININE 0.8 mg/dL (0.6-1.3); POTASSIUM 3.7 mmol/L (3.5-5.1); TOTAL BILIRUBIN 3.1 mg/dL (<0.1-1.0); TOTAL PROTEIN 6.1 g/dL (6.4-8.2)
[2021-03-28 15:01] LABS: BE -3.3 mmol/L (-2 to +3); PCO2 26.5 mmHg (35.0-45.0); PO2 97.5 mmHg (75.0-100.0); pH 7.475 (7.340-7.450)
[2021-03-28 16:32] LABS: ABSOLUTE LYMPHOCYTES 0.8 thou/uL (0.8-5.3); ABSOLUTE MONOCYTES 0.8 thou/uL (0.0-1.2); ABSOLUTE NEUTROPHILS 5.9 thou/uL (1.6-8.1); BASOPHILS 0.1 %; EOSINOPHILS 0.2 %; HEMATOCRIT 22.8 % (37.0-47.0); HEMOGLOBIN 7.8 gm/dL (12.0-15.0); LYMPHOCYTES 10.9 %; MCH 33.6 pg (26.0-34.0); MCHC 34.2 g/dL (28.0-37.0); MCV 98.3 fL (80.0-100.0); MONOCYTES 10.2 %; MPV 7.9 fl. (7.2-11.1); NUCLEATED RBCS 0 /100WBC; PLATELET COUNT* 211 thou/uL (150-400); POLYS 78.6 %; RBC 2.32 mil/uL (4.20-5.00); RDW-CV 14.9 % (10.5-14.5); WBC 7.5 thou/uL (4.0-11.0)
[2021-03-28 16:51] LABS: CALCIUM 8.1 mg/dL (8.5-10.1); CREATININE 0.8 mg/dL (0.6-1.3); POTASSIUM 3.7 mmol/L (3.5-5.1)
[2021-03-28 18:34] LABS: AMP/METHAMP Negative (Negative); BARBITURATES Negative (Negative); BENZODIAZEPINES Negative (Negative); COCAINE Negative (Negative); METHADONE Negative (Negative); OPIATES POSITIVE (Negative); PCP Negative (Negative); THC Negative (Negative)
[2021-03-28 19:45] VITALS: BP 133/85
[2021-03-29 00:42] VITALS: BP 132/86
[2021-03-29 04:14] VITALS: BP 144/70
[2021-03-29 04:32] LABS: HEMATOCRIT 22.7 % (37.0-47.0); HEMOGLOBIN 7.8 gm/dL (12.0-15.0); MCH 33.7 pg (26.0-34.0); MCHC 34.5 g/dL (28.0-37.0); MCV 97.8 fL (80.0-100.0); MPV 7.7 fl. (7.2-11.1); RBC 2.32 mil/uL (4.20-5.00)
[2021-03-29 04:47] LABS: ALBUMIN 2.7 g/dL (3.4-5.0); CALCIUM 8.2 mg/dL (8.5-10.1); CREATININE 0.7 mg/dL (0.6-1.3); POTASSIUM 3.5 mmol/L (3.5-5.1); TOTAL PROTEIN 6.3 g/dL (6.4-8.2)
[2021-03-29 06:30] VITALS: BP 151/92
[2021-03-29 08:00] VITALS: BP 142/85
[2021-03-29 15:12] LABS: ABSOLUTE EOSINOPHILS 0.1 thou/uL (0.0-0.7); ABSOLUTE LYMPHOCYTES 1.1 thou/uL (0.8-5.3); ABSOLUTE NEUTROPHILS 6.6 thou/uL (1.6-8.1); BASOPHILS 0.1 %; EOSINOPHILS 0.6 %; HEMATOCRIT 23.3 % (37.0-47.0); HEMOGLOBIN 8.1 gm/dL (12.0-15.0); LYMPHOCYTES 12.3 %; MCH 33.8 pg (26.0-34.0); MCHC 34.8 g/dL (28.0-37.0); MCV 97.1 fL (80.0-100.0); MONOCYTES 11.2 %; MPV 7.4 fl. (7.2-11.1); NUCLEATED RBCS 0 /100WBC; PLATELET COUNT* 256 thou/uL (150-400); POLYS 75.8 %; WBC 8.8 thou/uL (4.0-11.0)
[2021-03-29 15:20] LABS: CREATININE 0.8 mg/dL (0.6-1.3); POTASSIUM 3.5 mmol/L (3.5-5.1)
[2021-03-29 15:25] LABS: ALBUMIN 2.7 g/dL (3.4-5.0); TOTAL PROTEIN 6.4 g/dL (6.4-8.2)
[2021-03-29 16:40] LABS: LIPASE 191 U/L (73-393); TRIGLYCERIDE 119 mg/dL (<150)
[2021-03-29 16:42] LABS: BE -3.1 mmol/L (-2 to +3); PCO2 29.9 mmHg (35.0-45.0); PO2 103.4 mmHg (75.0-100.0); pH 7.449 (7.340-7.450)
[2021-03-29 23:26] LABS: HEMATOCRIT 22.3 % (37.0-47.0); HEMOGLOBIN 7.6 gm/dL (12.0-15.0)
[2021-03-30] VITALS (46 sets, daily range): BP systolic 82–138; BP diastolic 46–86
[2021-03-30 06:21] LABS: ABSOLUTE BASOPHILS 0.1 thou/uL (0.0-0.2); ABSOLUTE LYMPHOCYTES 1.7 thou/uL (0.8-5.3); BASOPHILS 1.1 %; HEMATOCRIT 24.6 % (37.0-47.0); LYMPHOCYTES 15.1 %; MPV 7.5 fl. (7.2-11.1); RBC 2.57 mil/uL (4.20-5.00)
[2021-03-30 06:23] LABS: ABSOLUTE EOSINOPHILS 0.2 thou/uL (0.0-0.7); ABSOLUTE MONOCYTES 1.1 thou/uL (0.0-1.2); ABSOLUTE NEUTROPHILS 7.9 thou/uL (1.6-8.1); EOSINOPHILS 1.9 %; HEMOGLOBIN 8.5 gm/dL (12.0-15.0); MCH 32.9 pg (26.0-34.0); MCHC 34.3 g/dL (28.0-37.0); MCV 95.7 fL (80.0-100.0); MONOCYTES 10.5 %; NUCLEATED RBCS 0 /100WBC; PLATELET COUNT* 212 thou/uL (150-400); POLYS 71.4 %; RDW-CV 16.4 % (10.5-14.5)
[2021-03-30 06:37] LABS: ALBUMIN 2.4 g/dL (3.4-5.0); APTT 27.6 Seconds (25.0-31.3); CALCIUM 7.9 mg/dL (8.5-10.1); CREATININE 0.8 mg/dL (0.6-1.3); INR 1.4; TOTAL BILIRUBIN 2.7 mg/dL (<0.1-1.0); TOTAL PROTEIN 5.7 g/dL (6.4-8.2)
[2021-03-30 06:46] LABS: POTASSIUM 2.7 mmol/L (3.5-5.1)
[2021-03-30 07:24] LABS: PHOSPHORUS* 3.2 mg/dL (2.5-4.9)
[2021-03-30 10:31] LABS: AMP/METHAMP Negative (Negative); BARBITURATES Negative (Negative); BENZODIAZEPINES POSITIVE (Negative); COCAINE Negative (Negative); METHADONE Negative (Negative); OPIATES POSITIVE (Negative); PCP Negative (Negative); THC Negative (Negative)
[2021-03-30 11:19] LABS: BE -3.7 mmol/L (-2 to +3); PCO2 22.5 mmHg (35.0-45.0); PO2 103.4 mmHg (75.0-100.0)
[2021-03-30 18:31] LABS: CALCIUM 7.6 mg/dL (8.5-10.1); CREATININE 0.7 mg/dL (0.6-1.3); POTASSIUM 3.5 mmol/L (3.5-5.1)
[2021-03-31] VITALS (74 sets, daily range): BP systolic 66–131; BP diastolic 41–77
[2021-03-31 05:26] LABS: ABSOLUTE BASOPHILS 0.1 thou/uL (0.0-0.2); ABSOLUTE EOSINOPHILS 0.3 thou/uL (0.0-0.7); ABSOLUTE LYMPHOCYTES 1.9 thou/uL (0.8-5.3); ABSOLUTE MONOCYTES 0.6 thou/uL (0.0-1.2); ABSOLUTE NEUTROPHILS 4.1 thou/uL (1.6-8.1); EOSINOPHILS 4.2 %; HEMATOCRIT 23.6 % (37.0-47.0); HEMOGLOBIN 7.9 gm/dL (12.0-15.0); LYMPHOCYTES 27.6 %; MCH 32.3 pg (26.0-34.0); MCHC 33.5 g/dL (28.0-37.0); MCV 96.6 fL (80.0-100.0); MPV 7.3 fl. (7.2-11.1); NUCLEATED RBCS 0 /100WBC; PLATELET COUNT* 165 thou/uL (150-400); POLYS 59.2 %; RBC 2.45 mil/uL (4.20-5.00); RDW-CV 16.3 % (10.5-14.5); WBC 6.9 thou/uL (4.0-11.0)
[2021-03-31 06:00] LABS: PHOSPHORUS* 3.5 mg/dL (2.5-4.9)
[2021-03-31 06:01] LABS: ALBUMIN 2.2 g/dL (3.4-5.0); CALCIUM 7.2 mg/dL (8.5-10.1); CREATININE 0.9 mg/dL (0.6-1.3); POTASSIUM 3.4 mmol/L (3.5-5.1); TOTAL BILIRUBIN 2.1 mg/dL (<0.1-1.0)
[2021-03-31 06:20] LABS: PREALBUMIN 7.6 mg/dL (18.0-35.7)
--- NOTE | 2021-03-31 08:38 | CON ---
[address] [address] CONSULTATION Name: SUNDAY ROSS ANN Room: [address] IN M.R.#: [id number] Admission: 03/23/21 Attend Phys: Ricarda Garcia Discharge: Date of : 66 Report #: [id number] THIS REPORT FOR: cc: PHIL HURLEY MD, BEVERLEY B. MD [place], Roxane S. DO ~ DATE OF CONSULTATION: 03/29/2021 NEUROLOGY CONSULT HISTORY OF PRESENT ILLNESS: The patient is a 51-year-old female who has recently had surgery for small bowel obstruction. The patient came to the Emergency Room on 03/23 complaining of abdominal pain. She has been discharged the day previously for small bowel obstruction. The patient was doing well until yesterday when she became more lethargic. It was noted at that time that her ammonia level had risen and she had an ammonia level of 280. She was put on rectal lactulose. The patient continued to be unresponsive and lethargic, but this afternoon, she had an event that was concerning for seizure. She was biting down, her eyes were closed, but there was no movement of the arms or legs. The patient was intubated and brought to the intensive care unit. She is now on the ventilator and is on propofol. The patient has a history of alcohol abuse, liver failure, small bowel obstruction. PAST SURGICAL HISTORY: Hernia repair, small bowel resection. MEDICATIONS: Flagyl 500 mg q. 8 hours, lactulose 30 mL t.i.d., Protonix 40 mg IV push daily, piperacillin 3.375 grams q. 8 hours, propofol drip. ALLERGIES: CODEINE, ACETAMINOPHEN, ERYTHROMYCIN, OXYCODONE, DARVOCET. PHYSICAL EXAMINATION: VITAL SIGNS: Temperature 37.4, pulse rate 114, respiratory rate 22, blood pressure 142/85, bedside pulse oximetry 97% on the ventilator. LABORATORY DATA: Hematology: White blood cell count 8.8, hemoglobin 8.1, hematocrit 23.3, MCV 97.1, platelet count 256,000. INR 1.3. Urinalysis dated 03/24, unremarkable. Chemistry: Sodium 135, potassium 3.5, chloride 106, carbon dioxide 23, BUN 13, creatinine 0.8, GFR 75, glucose 135. Lactic acid 1.9, calcium 8, magnesium 2, total bilirubin 3, AST 23, ALT 17, alkaline phosphatase 110. Ammonia 157 at 3 p.m. today. Creatine kinase 23, total [facility] [address] [place] [address] CONSULTATION Name: SUNDAY ROSS Room: [address] IN [facility]#: [id number] Admission: 03/23/21 Attend Phys: Ricarda Garcia Discharge: Date of : 66 Report #: [id number] protein 6.4. Albumin 2.7, triglycerides 119, lipase 191. Toxicology opiate positive, serology COVID negative. IMAGING: CT scan of the head demonstrates no acute intracranial abnormality. NEUROLOGIC EXAM: The patient is on propofol 20 mcg. Her pupils are round and reactive to light. Corneal reflexes and oculocephalic reflexes are present. She is not responsive to verbal or tactile stimulation. There are no spontaneous movements of the extremities. Plantar responses are extensor bilaterally. Reflexes are trace throughout. Coordination cannot be tested. IMPRESSION: This patient was thought to have had a seizure by biting down on her tongue; however, she had no movements in the extremities. I spoke with the nurse and she told me that her extremities were flaccid. I question whether this patient has had a brainstem event, which can be difficult to see on CT scan. If the patient is stable, then the next step would be an MRI of the head. At this point, I am going to hold on giving the patient an anti-seizure medication. She was given 1 gram of levetiracetam, but now she is on propofol, so I feel that the anti-seizure medicine can be put on hold for now. The next step when the sedation can be reduced or perhaps discontinued is to do an EEG, as the propofol will affect the EEG and obscure the patient's true brain activity. I thank you for your kind referral of the patient and we will continue to follow her with you. <ELECTRONICALLY SIGNED> By: Tiny Don DO 03/31/21 0838 1707 [id number] Don DO /nt
[2021-03-31 14:34] LABS: CALCIUM 7.5 mg/dL (8.5-10.1); CREATININE 0.7 mg/dL (0.6-1.3); POTASSIUM 3.5 mmol/L (3.5-5.1)
[2021-03-31 15:31] LABS: PCO2 23.7 mmHg (35.0-45.0); PO2 109.4 mmHg (75.0-100.0)
[2021-04-01] VITALS (71 sets, daily range): BP systolic 72–155; BP diastolic 43–101
[2021-04-01 06:25] LABS: HEMATOCRIT 26.3 % (37.0-47.0); HEMOGLOBIN 8.9 gm/dL (12.0-15.0); MCH 32.7 pg (26.0-34.0); MCHC 33.8 g/dL (28.0-37.0); MCV 96.5 fL (80.0-100.0); MPV 7.4 fl. (7.2-11.1); RBC 2.72 mil/uL (4.20-5.00); RDW-CV 16.4 % (10.5-14.5); WBC 10.4 thou/uL (4.0-11.0)
[2021-04-01 06:33] LABS: CALCIUM 7.3 mg/dL (8.5-10.1); CREATININE 0.8 mg/dL (0.6-1.3); POTASSIUM 3.2 mmol/L (3.5-5.1)
[2021-04-01 11:42] LABS: ABSOLUTE BASOPHILS 0.2 thou/uL (0.0-0.2); ABSOLUTE EOSINOPHILS 0.6 thou/uL (0.0-0.7); ABSOLUTE LYMPHOCYTES 2.5 thou/uL (0.8-5.3); ABSOLUTE MONOCYTES 0.9 thou/uL (0.0-1.2); ABSOLUTE NEUTROPHILS 7.5 thou/uL (1.6-8.1); BASOPHILS 1.4 %; EOSINOPHILS 4.8 %; HEMATOCRIT 27.6 % (37.0-47.0); HEMOGLOBIN 9.1 gm/dL (12.0-15.0); LYMPHOCYTES 21.8 %; MCH 31.8 pg (26.0-34.0); MCHC 32.8 g/dL (28.0-37.0); MONOCYTES 7.5 %; MPV 7.3 fl. (7.2-11.1); NUCLEATED RBCS 0 /100WBC; PLATELET COUNT* 230 thou/uL (150-400); POLYS 64.5 %; RBC 2.84 mil/uL (4.20-5.00); RDW-CV 16.5 % (10.5-14.5); WBC 11.6 thou/uL (4.0-11.0)
[2021-04-01 12:01] LABS: ALBUMIN 2.2 g/dL (3.4-5.0); CALCIUM 7.3 mg/dL (8.5-10.1); CREATININE 0.7 mg/dL (0.6-1.3); POTASSIUM 3.4 mmol/L (3.5-5.1); TOTAL BILIRUBIN 1.9 mg/dL (<0.1-1.0); TOTAL PROTEIN 5.5 g/dL (6.4-8.2)
[2021-04-01 12:42] LABS: BE -3.7 mmol/L (-2 to +3); PCO2 VENOUS 28.8 mmHg (41.0-51.0)
--- NOTE | 2021-04-01 12:46 | 2DMMODE ---
[place] [address] 2 D/M-MODE ECHOCARDIOGRAM Name: SUNDAY ROSS ANN Room: [address] IN [facility]#: [id number] Admission: 03/23/21 Attend Phys: Eliot Lobato Discharge: Date of : 66 Date of Service: 04/01/21 1246 Report #: [id number] THIS REPORT FOR: cc: PHIL HURLEY MD, BEVERLEY B. MD Holkins, John M. MD [facility] ~ APPROVED REPORT Study performed: 04/01/2021 10:25:17 EXAM: Comprehensive 2D, Doppler, and color-flow Echocardiogram Patient Location: In-Patient Room #: 008 Status: routine BSA: 1.89 HR: 56 bpm BP: 86/57 mmHg Rhythm: NSR Other Information Study Quality: Good Indications Dyspnea 2D Dimensions IVSd: 11.04 (7-11mm) LVOT Diam: 21.66 (18-24mm) LVDd: 48.35 mm PWd: 8.82 (7-11mm) Ascending Ao: 34.57 (22-36mm) LVDs: 35.19 (25-40mm) Aortic Root: 32.52 mm Volumes Left Atrial Volume (Systole) LA ESV Index: 24.50 mL/m2 Aortic Valve AoV Peak Spencer.: 1.49 m/s AO Peak Gr.: 8.82 mmHg LVOT Max P.56 mmHg AO Mean Gr.: 4.75 mmHg LVOT Mean P.65 mmHg LVOT Max V: 1.28 m/s AO V2 VTI: 30.95 cm LVOT Mean V: 0.72 m/s RAYMUNDO (VTI): 3.13 cm2 LVOT V1 VTI: 26.29 [place] [address] 2 D/M-MODE ECHOCARDIOGRAM Name: SUNDAY ROSS ANN Room: [address] IN [facility]#: [id number] Admission: 03/23/21 Attend Phys: Eliot Lobato Discharge: Date of : 66 Date of Service: 04/01/21 1246 Report #: [id number] Mitral Valve E/A Ratio: 2.10 MV Decel. Time: 244.49 ms MV E Max Spencer.: 1.08 m/s MV PHT: 70.90 ms MVA (PHT): 3.10 cm2 TDI E/Lateral E': 7.71 E/Medial E': 9.82 Medial E' Spencer.: 0.11 m/s Lateral E' Spencer.: 0.14 m/s Pulmonary Valve PV Peak Spencer.: 0.75 m/s PV Peak Gr.: 2.22 mmHg Tricuspid Valve RAP Estimate: 5.00 mmHg TR Peak Gr.: 17.81 mmHg RVSP: 22.00 mmHg PA Pressure: 22.00 mmHg Left Ventricle The left ventricle is normal size. There is normal LV segmental wall motion. There is normal left ventricular wall thickness. Left ventricular systolic function is normal. The left ventricular ejection fraction is within the normal range. LVEF is 55-60%. The left ventricular diastolic function is normal. Right Ventricle The right ventricle is normal size. The right ventricular systolic function is normal. Atria The left atrium size is normal. The right atrium size is normal. Aortic Valve The aortic valve is normal in structure. No aortic regurgitation is present. There is no aortic valvular stenosis. Mitral Valve The mitral valve is normal in structure. There is no mitral valve regurgitation noted. No evidence of mitral valve stenosis. Tricuspid Valve The tricuspid valve is normal in structure. Trace tricuspid regurgitation. [place] [address] 2 D/M-MODE ECHOCARDIOGRAM Name: SUNDAY ROSS ANN Room: [address] IN [facility]#: [id number] Admission: 03/23/21 Attend Phys: Eliot Lobato Discharge: Date of : 66 Date of Service: 04/01/21 1246 Report #: [id number] Pulmonic Valve The pulmonary valve is normal in structure. There is no pulmonic valvular regurgitation. Great Vessels The aortic root is normal in size. IVC is normal in size and collapses >50% with inspiration. Pericardium There is no pericardial effusion. <Conclusion> The left ventricle is normal size. There is normal left ventricular wall thickness. Left ventricular systolic function is normal. The left ventricular ejection fraction is within the normal range. LVEF is 55-60%. The left ventricular diastolic function is normal. The right ventricle is normal size. The left atrium size is normal. The aortic valve is normal in structure. The mitral valve is normal in structure. The tricuspid valve is normal in structure. IVC is normal in size and collapses >50% with inspiration. There is no pericardial effusion. There is normal LV segmental wall motion. <ELECTRONICALLY SIGNED> By: Paulie Nascimento MD, FACC 04/01/21 1246 1246 1246 Paulie Nascimento MD, FACC /INF
--- NOTE | 2021-04-01 16:08 | CON ---
[address] [address] CONSULTATION Name: SUNDAY ROSS Room: [address] IN M.R.#: [id number] Admission: 03/23/21 Attend Phys: Ricarda Garcia Discharge: Date of : 66 Report #: [id number] THIS REPORT FOR: cc: PHIL HURLEY MD, BEVERLEY B. MD Pervez, Adeel MD ~ DATE OF CONSULTATION: 03/30/2021 CONSULT HAS BEEN REQUESTED BY: Jaziel Wills MD. INDICATION FOR CONSULTATION: Acute hypoxemic respiratory failure. HISTORY OF PRESENT ILLNESS: This is a 51-year-old female, past medical history includes a history of chronic liver disease secondary to heavy alcohol intake. There is no mention of COPD on the record; however, the patient is reported to be smoking about half a pack a day. She has a history of bowel obstruction in the past as well. At this time again is admitted with abdominal complaints, nausea or vomiting, at one point had diarrhea as well, but was noted to have a small-bowel obstruction with having abdominal pain on initial presentation. She underwent an exploratory laparotomy with small bowel resection and primary reanastomosis. The patient's mental status did decline subsequently. She was suspected of having hepatic encephalopathy and ammonia was up to 280. Yesterday, the patient went into respiratory distress. She is reported to have had a possible seizure, was biting down on her teeth, not fully clear as to whether that she aspirated or not. The patient required to be endotracheally intubated. At this point, the patient is stable on the ventilator. She is on 40% FiO2, 5 of PEEP. Potassium was critically low, but this is being replaced. There is alkalosis on her blood gas. The patient does have significant abdominal distention. She has had minimal urine output, only 75 mL since this morning, although her BUN and creatinine are normal. She is sedated with 20 of propofol. The patient is on the ventilator and therefore is not able to provide a further history or review of systems. PAST MEDICAL HISTORY: Chronic liver disease secondary to heavy alcohol intake, has had a previous bowel obstruction as well, breast augmentation, bunionectomy, 2 C-sections, pneumonia. There is no mention of COPD on the records. It may be that she has COPD. She is an active smoker. Last echo from November looks unremarkable. SOCIAL HISTORY: Heavy alcohol intake, smoker, actively half pack a day for several decades. No known history of illegal drug use. CURRENT MEDICATIONS: List in [place] [address] CONSULTATION Name: SUNDAY ROSS ANN Room: [address] IN [facility]#: [id number] Admission: 03/23/21 Attend Phys: Ricarda Garcia Discharge: Date of : 66 Report #: [id number] HOME MEDICATIONS: List also in [facility] reviewed. FAMILY HISTORY: No pertinent family history known at this time. ALLERGIES: REPORTED TO HAVE HAD HIVES WITH DARVOCET WELL ERYTHROMYCIN. THERE IS ALSO QUESTIONABLE ALLERGY TO CODEINE AND OXYCODONE. PHYSICAL EXAMINATION: GENERAL: She is well sedated. She is on 20 of propofol. VITAL SIGNS: She has a pulse of 90 and a blood pressure of 131/84. She is on 40% FiO2. She is on 5 of PEEP, respiratory rate was set at 12. At time of my evaluation was breathing in the mid 20s. She has low-grade fever of 37.4. HEENT: Head is normocephalic and atraumatic. Endotracheal tube was high in the trachea. NECK: Does not show raised JVP, asymmetry, mass or lymph nodes. CHEST: Symmetrical expansion on inspection and palpation. On auscultation, breath sounds are bilaterally equal. I do not hear any added sounds. ABDOMEN: Significantly distended. There is vague discomfort on palpation of the abdomen. EXTREMITIES: Lower extremities show no edema and no calf tenderness. SKIN: Dry and intact. NEUROLOGIC: She did move all extremities to pain. LABORATORY DATA: The patient's chest x-ray from yesterday is reviewed and compared with chest x-ray done today and no major infiltrates identified. I do not see any significant pulmonary vascular congestion either. The patient's lab work is in [facility] and this is reviewed. ASSESSMENT AND PLAN: 1. Acute hypoxemic respiratory failure. I would start her on Precedex. We will then try to bring the propofol down or off if possible. We will continue with p.r.n. additional sedation if needed. If the patient remains stable, then we will assess tomorrow regarding whether we can do a weaning trial. 2. Small-bowel obstruction, status post surgery/blood per rectum. There is small amount of blood per rectum noted. Surgery service is aware. I would defer followup to them. 3. Seizure/possible aspiration. I did order Zosyn. The patient also remains on metronidazole, which may in fact help with hepatic encephalopathy. 4. Chronic liver disease/hepatic encephalopathy. The GI service is on the case. The patient is on a PPI. 5. Deep vein thrombosis prophylaxis. She had some blood per rectum. Therefore, I am referring to the Surgery Service. If no contraindications, then I recommend starting her on Lovenox in the prophylactic dose. [address] [address] CONSULTATION Name: SUNDAY ROSS ANN Room: [address] IN M.R.#: [id number] Admission: 03/23/21 Attend Phys: Ricarda Garcia Discharge: Date of : 66 Report #: [id number] 6. History of heavy alcohol intake. We will give her thiamine and folate. 7. Low urine output. I increased her IV fluids to 100 an hour. We will give her a bolus of 500 mL an hour as well as albumin. We will give her more fluids if urine output remains low. 8. Hypokalemia. This is being replaced. 9. History of smoking. No definite history of chronic obstructive pulmonary disease, but I will give her nebulized bronchodilators for now. The patient is critically ill at this time. Total time spent providing critical care to this patient today exceeds 45 minutes. <ELECTRONICALLY SIGNED> By: David Daniels MD 04/01/21 1608 1143 1913Apraveen Daniels MD /nt
[2021-04-01 18:38] LABS: CALCIUM 7.8 mg/dL (8.5-10.1); CREATININE 1.1 mg/dL (0.6-1.3); MAGNESIUM 1.7 mg/dL (1.8-2.4); POTASSIUM 3.6 mmol/L (3.5-5.1)
[2021-04-02] VITALS (49 sets, daily range): BP systolic 80–130; BP diastolic 46–84
[2021-04-02 05:06] LABS: ABSOLUTE MONOCYTES 0.5 thou/uL (0.0-1.2); ABSOLUTE NEUTROPHILS 6.4 thou/uL (1.6-8.1); BASOPHILS 0.3 %; HEMATOCRIT 25.2 % (37.0-47.0); HEMOGLOBIN 8.6 gm/dL (12.0-15.0); LYMPHOCYTES 12.1 %; MCH 32.8 pg (26.0-34.0); MCHC 34.3 g/dL (28.0-37.0); MCV 95.7 fL (80.0-100.0); MONOCYTES 6.4 %; MPV 7.3 fl. (7.2-11.1); NUCLEATED RBCS 0 /100WBC; PLATELET COUNT* 205 thou/uL (150-400); POLYS 81.2 %; RBC 2.63 mil/uL (4.20-5.00); RDW-CV 15.9 % (10.5-14.5); WBC 7.9 thou/uL (4.0-11.0)
[2021-04-02 05:25] LABS: ALBUMIN 2.4 g/dL (3.4-5.0); CREATININE 0.8 mg/dL (0.6-1.3); POTASSIUM 3.3 mmol/L (3.5-5.1); TOTAL PROTEIN 5.9 g/dL (6.4-8.2)
[2021-04-03 00:35] VITALS: BP 109/70
[2021-04-03 02:35] VITALS: BP 114/73
[2021-04-03 04:36] VITALS: BP 110/83
[2021-04-03 06:20] LABS: ABSOLUTE MONOCYTES 0.7 thou/uL (0.0-1.2); ABSOLUTE NEUTROPHILS 12.2 thou/uL (1.6-8.1); BASOPHILS 0.2 %; EOSINOPHILS 0.1 %; HEMATOCRIT 26.2 % (37.0-47.0); HEMOGLOBIN 8.8 gm/dL (12.0-15.0); LYMPHOCYTES 13.1 %; MCH 32.1 pg (26.0-34.0); MCHC 33.7 g/dL (28.0-37.0); MCV 95.3 fL (80.0-100.0); MPV 7.6 fl. (7.2-11.1); NUCLEATED RBCS 0 /100WBC; POLYS 81.6 %; RBC 2.75 mil/uL (4.20-5.00); WBC 14.9 thou/uL (4.0-11.0)
[2021-04-03 06:31] LABS: ALBUMIN 2.8 g/dL (3.4-5.0); CALCIUM 8.3 mg/dL (8.5-10.1); CREATININE 0.7 mg/dL (0.6-1.3); MAGNESIUM 2.3 mg/dL (1.8-2.4); POTASSIUM 3.6 mmol/L (3.5-5.1); TOTAL PROTEIN 6.7 g/dL (6.4-8.2)
[2021-04-03 06:32] LABS: PLATELET COUNT* 328 thou/uL (150-400)
[2021-04-04 08:00] VITALS: BP 105/61; BP 125/80; BP 128/83
[2021-04-04 09:24] LABS: ABSOLUTE LYMPHOCYTES 1.5 thou/uL (0.8-5.3); ABSOLUTE MONOCYTES 0.6 thou/uL (0.0-1.2); ABSOLUTE NEUTROPHILS 7.8 thou/uL (1.6-8.1); BASOPHILS 0.2 %; HEMATOCRIT 25.2 % (37.0-47.0); HEMOGLOBIN 8.4 gm/dL (12.0-15.0); LYMPHOCYTES 14.7 %; MCH 32.3 pg (26.0-34.0); MCHC 33.4 g/dL (28.0-37.0); MCV 96.9 fL (80.0-100.0); MONOCYTES 5.9 %; MPV 7.8 fl. (7.2-11.1); NUCLEATED RBCS 0 /100WBC; PLATELET COUNT* 290 thou/uL (150-400); POLYS 79.2 %; RDW-CV 16.1 % (10.5-14.5); WBC 9.9 thou/uL (4.0-11.0)
[2021-04-04 09:28] LABS: CALCIUM 8.2 mg/dL (8.5-10.1); CREATININE 0.7 mg/dL (0.6-1.3); POTASSIUM 3.5 mmol/L (3.5-5.1)
[2021-04-04 14:34] VITALS: BP 128/83
[2021-04-04 16:41] VITALS: BP 128/83
== END 2021-04-04 17:18 | disposition home health service (06) | DRG 329 ==
LOC: M.ERS 16:11 → M.TBA-ER 18:54 → M.ICU 18:54 → M.3W 18:54 → M.2W 03-28 15:51 → M.TBA 03-29 15:30 → M.ICU 03-29 16:09 → M.3W 04-03 16:24
PROVIDERS: Family Medicine; Internal Medicine; Internal Medicine Critical Care Medicine; Surgery; ADMIT Internal Medicine; ATTEND Internal Medicine
DX: K56.609 Unspecified intestinal obstruction, unspecified as to partial versus complete obstruction (principal); J69.0 Pneumonitis due to inhalation of food and vomit; J96.01 Acute respiratory failure with hypoxia; E44.1 Mild protein-calorie malnutrition; R71.0 Precipitous drop in hematocrit; K92.2 Gastrointestinal hemorrhage, unspecified; G40.911 Epilepsy, unspecified, intractable, with status epilepticus; E87.1 Hypo-osmolality and hyponatremia; F10.231 Alcohol dependence with withdrawal delirium; F10.221 Alcohol dependence with intoxication delirium; Z20.822 Contact with and (suspected) exposure to COVID-19; Z88.8 Allergy status to other drugs, medicaments and biological substances; F17.210 Nicotine dependence, cigarettes, uncomplicated; Z68.27 Body mass index [BMI] 27.0-27.9, adult; K72.90 Hepatic failure, unspecified without coma; K56.7 Ileus, unspecified; K70.30 Alcoholic cirrhosis of liver without ascites; E87.6 Hypokalemia; E80.6 Other disorders of bilirubin metabolism